=== PATIENT | male | born 1945 | race Caucasian/White ===

== ENCOUNTER → 2017-11-24 | Outpatient (CLI) | payer MEDICARE, BC ==
[~2017-11-24] MED LIST: ADULT LOW DOSE81 MG PO; FLOMAX PO; LISINOPRIL10 MG PO; LOVASTATIN PO; PERCOCET 5-3251 EACH PO; ZOFRAN ODT4 MG PO
== END ==
LOC: M.ULTRA 12:48
DX: G45.8 Other transient cerebral ischemic attacks and related syndromes (principal)

== ENCOUNTER → 2019-11-21 | Outpatient (CLI) | payer MEDICARE, BC | LOC: M.CT 11-01 15:41 | DX: I67.82 Cerebral ischemia (principal); Z79.899 Other long term (current) drug therapy ==